=== PATIENT | female | born 1955 | race Caucasian/White ===

== ENCOUNTER 2016-07-11 00:46 | Emergency (ER) | payer OTHER ==
--- NOTE | 2016-07-11 00:50 | PDOC ---
History of Present Illness - General Chief Complaint: Pain Stated Complaint: PAIN Time Seen by Provider: 07/11/16 00:49 History Source: Patient Exam Limitations: No Limitations - History of Present Illness Initial Comments: 07/11/16 02:30 This is a 61-year-old female without any significant prior medical history. Patient comes in complaining of 2 days of sharp pain to her anterior chest wall area. Patient said pain is worse with movement or palpation. Patient said that she took a spinning class II days ago but otherwise denies any other unusual physical activity. Patient denies any associated shortness of breath, radiation or nausea or diaphoresis with the pain. Patient denies any history of hypertension, high cholesterol or any other cardiac risk factors. PAST MEDICAL HISTORY: no significant history PAST SURGICAL HISTORY: no significant history FAMILY HISTORY: no pertinant history SOCIAL HISTORY: Pt lives with family and is employed. MEDICATIONS: reviewed ALLERGIES: As per nursing notes Review of Systems General: No fevers or chills, no weakness, no weight loss HEENT: No change in vision. No sore throat,. No ear pain CardioVascular: + chest pain no shortness of breath Respiratory:No cough, or wheezing. Gastrointestinal: no nausea, vomitting, diarrhea or constipation, No rectal bleeding Genitourinary: No dysuria, hematuria, or frequency Musculoskeletal: No joint or muscle pain or swelling Neurologic: No headache, vertigo, dizziness or loss of consciousness Psychiatric: nor depression Skin: No rashes or easy bruising Endocrine: no increased thirst or abnormal weight change Allergic: no skin or latex allergy All other systems reviewed and normal Exam: General: Well-nourished well-developed individual, no acute distress HEENT: Throat: Normal, tonsils normal, no erythema or exudate Neck: Supple, no meningeal signs, no lymphadenopathy Eyes::Pupils equal reactive and round, extraocular motion intact Chest: Pain is reproduced with palpation and movement Cardiac: S1-S2 normal, regular rate and rhythm, no murmurs rubs or gallops Respiratory: Lungs clear to auscultation bilateral Abdomen: Soft, nondistended, normal bowel sounds, nontender to palpation diffusely Extremities: Warm, dry, no cyanosis, clubbing, or edema Skin: No rashes Neuro: Alert and oriented x3, nonfocal exam, grossly intact, normal gait Psych: Normal mood and affect EKG shows normal sinus rhythm questionable acute ST-T wave changes Chest x-ray is normal there is no visible enlargement of the heart: Chest x-ray and mediastinum and other structures are normal Assessment and plan: This is a 61-year-old female who has had 2 days of chest wall pain. Patient pain appears to be skeletal muscle in nature. Patient did have a spinning class that she took prior to the onset of the pain. Patient's heart score is 2 patient is otherwise healthy and has no cardiac risk factors patient's troponin was negative Patient discharged home was told to follow-up with her doctor and given a copy of her cardiogram. Past History - Past Medical History Allergies/Adverse Reactions: Allergies Allergy/AdvReac Type Severity Reaction Status Date / Time Penicillins Allergy Verified 02/08/12 21:07 Home Medications: Ambulatory Orders Ibuprofen [Advil -] 400 mg PO ONCE 07/11/16 - Psycho/Social/Smoking Cessation Hx Anxiety: No Suicidal Ideation: No Smoking Status: No Smoking History: Former smoker Number of Cigarettes Smoked Daily: 0 Cigars Per Day: 0 Hx Alcohol Use: No Drug/Substance Use Hx: No Substance Use Type: None Hx Substance Use Treatment: No Heart Score/ECG Review - History History: Slightly suspicious - Electrocardiogram EKG: Non specific repolarization disturbance - Age Age: 45-65 - Risk Factors Based on the list above the patient has:: No risk factors known - Troponin Troponin: </= normal limit - Score Heart Score - Total: 2 *DC/Admit/Observation/Transfer Diagnosis at time of Disposition: Chest wall pain - Discharge Dispostion Disposition: HOME Condition at time of disposition: Stable Admit: No - Referrals Referrals: Manjula Licona [Primary Care Provider] - - Patient Instructions Additional Instructions: Follow-up with your doctor next week. You can take Tylenol or Motrin as needed for pain. Take a copy of with U of your cardiogram when you go to see her doctor and have him review it. Return to the emergency department immediately with ANY new, persistent or worsening symptoms. Continue any medications as previously prescribed by your physician. . Please make sure your doctor reviews the results of your emergency evaluation. Thank you for coming to the Emergency Department today for your care. It was a pleasure to see you today. Please note that your evaluation is INCOMPLETE until you follow-up with your doctor.
[2016-07-11] MEDS ORDERED: ONDANSETRON *ODT* 4 MG TABLET SL ONE (01:13)
[2016-07-11 01:24] VITALS: BP 171/93; PULSE 96; TEMP 98.4; BMI 26.5
[2016-07-11 02:12] LABS: TROPONIN I < 0.02 ng/ml (0.00-0.05)
[2016-07-11] MEDS ORDERED: IBUPROFEN 400 MG TABLET (FP) PO ONE ×2 (02:26→02:28)
--- NOTE | 2016-07-13 09:05 | EKG ---
Test Reason : Blood Pressure : / mmHG Vent. Rate : 095 BPM Atrial Rate : 095 BPM P-R Int : 118 ms QRS Dur : 084 ms QT Int : 368 ms P-R-T Axes : 074 054 047 degrees QTc Int : 462 ms NORMAL SINUS RHYTHM BIATRIAL ENLARGEMENT NO PREVIOUS ECGS AVAILABLE Confirmed by MD MOISE, [facility] ([id number]) on 07/13/2016 9:04:55 AM Referred By: MD FORD Confirmed By:UMM PHIPPS MD
== END 2016-07-11 02:35 | disposition home or self-care (01) ==
LOC: FER 00:46
DX: R07.89 Other chest pain (principal); Z87.891 Personal history of nicotine dependence
CPT/HCPCS: 36415; 71020-TC; 82550; 84484; 93005; 99282-25